=== PATIENT | female | born 1980 | race Caucasian/White ===

== ENCOUNTER 2016-06-16 23:58 | Emergency (ER) | payer BC ==
--- NOTE | 2016-06-17 01:29 | ED NURSING NOTES ---
Clinical Report - [facility] [address] [place] [address] 06/17/2016 0:02 Patient: ILENE NUNEZ TRIAGE Triage time 0008. Acuity: LEVEL 4. Chief Complaint: INJURY TO THE LEFT GREAT TOE WITH PARTIAL AMPUTATION. RANDALL COMA SCORE: Randall Coma Scale: 15- eyes open spontaneously (4); best verbal response- oriented x 4 (5); best motor response- obeys commands (6). --00:15 Odessa Chawla R.N. 00:08 06/17/16. BP: 140/80. HR: 100. RR: 18 (unlabored). O2 saturation: 96% on room air. Temp: 98.1 F (oral). Pain level now: 08/14. --00:15 Odessa Chawla R.N. Weight: 56.6 kg stated. Height/Length: 61 inches Per Patient. BMI: 23.6. --00:08 Odessa Chawla R.N. Medications None. --00:14 Odessa Chawla R.N. Allergies Cephalexin. --00:14 Odessa Chawla R.N. Medication/allergy information source: the patient. --00:15 Odessa Chawla R.N. History Arrived by private vehicle. Historian: patient. Accompanied by friend. Primary physician ([facility]). ( pt c/o left great toenail almost completely torn off while she was walking barefoot outside her house. pt states it's been bleeding for over an hour. pt denies being on blood thinners.). This occurred just prior to arrival. Occurred at home. Mechanism of injury: (toenail torn off). Treatment MEDICAL IMAGING DIRECTOR: (bandaged). PAST MEDICAL HX: Tetanus status: up-to-date. Last normal menstrual period- June 01. SOCIAL HX: Never smoker. Occasional alcohol use. No drug use. ABUSE ASSESSMENT: No report of abuse. FALL RISK ASSESSMENT: Fall risk assessment completed. No fall risk identified. NUTRITIONAL RISK ASSESSMENT: The nutritional risk assessment revealed no deficiencies. FUNCTIONAL ASSESSMENT: Functional assessment: no impairments noted. LEARNING NEEDS ASSESSMENT: The learning needs assessment revealed no barriers. SKIN INTEGRITY ASSESSMENT: Skin integrity risk assessment completed. No skin integrity risk identified. --00:15 Odessa Chawla R.N. PROBLEMS: no known problems. ADDITIONAL SURGERIES: Left foot surgery. --00:14 Odessa Chawla R.N. Interventions ID band on patient. To treatment room. --00:15 Odessa Chawla R.N. PHYSICAL ASSESSMENT To room via wheelchair. GENERAL / NEURO / PSYCH: Oriented X 4. Appears in pain. EXTREMITIES: Capillary refill is less than 2 seconds in the extremities. Extremity pulses are within normal limits. Extremities exhibit normal ROM. Neuro-vascular status intact to the extremity. Normal gait. Left big toe: of the nail bed. SKIN: Skin intact. Skin is warm and dry. --00:16 Odessa Chawla R.N. <<STRICKEN ENTRY-- late entry - minimal bleeding at this time. --01:03 Odessa Chawla R.N. --END STRIKE>> Correction --01:03 Odessa Chawla R.N. late entry - slow bleed continues to left great toe. --01:03 Odessa Chawla R.N. NURSING PROGRESS NOTES Two patient identifiers checked. Call light placed in reach. Side rails up x 1. Bed placed in lowest position. Brakes of bed on. Patient ready for evaluation. --00:15 Odessa Chawla R.N. 00:38 06/17/2016 Percocet (Oxycodone-Acetaminophen) PO 5/325 mg Tablets 1 tab given. Allergies verified, confirmed 5 rights and sedative warning given to the patient. --00:38 Odessa Chawla R.N. 00:38 06/17/2016 Zofran ODT (Ondansetron) PO 4 mg given. Allergies verified and confirmed 5 rights. --00:38 Odessa Chawla R.N. 01:20 06/17/16. BP: 86/58. HR: 75. RR: 18 (unlabored). O2 saturation: 100% on room air. Pain level now: 07/15. --01:27 Odessa Chawla R.N. pt given ice water to drink. notified of pt's BP. --01:27 Odessa Chawla R.N. 01:20 06/17/2016 Percocet PO Response: pain is improving. --01:28 Odessa Chawla R.N. ( 0110: Soak the wound with Hibiclens and water). --01:39 Aurora Lucas ( 0120: cleaned and irrigated the wound with Sodium Choride). --01:43 Aurora Lucas ( 0125: Applied bacitracin and dress the wound). --01:44 Aurora Lucas. DISPOSITION / DISCHARGE Departure time: 0151. Condition at departure: improved. No learning barriers present. Discharge instructions provided and reviewed with the patient. Reviewed medication(s). Prescription(s) given to the patient (Percocet). Patient verbalized understanding. Written instructions provided in Romanian. The patient was discharged by the physician. She was discharged home and accompanied by product manager. She left the Emergency Department ambulatory and via private vehicle. Chipper Feeder driving. Medication list reviewed and validated with the patient. --01:55 Odessa Chawla R.N. 01:51 06/17/16. BP: 99/70. HR: 81. RR: 18. O2 saturation: 97% on room air. Temp: deferred. Pain level now: 06/14. --01:55 Odessa Chawla R.N. Locked/Released at 06/17/2016 1:55 by Odessa Chawla R.N.
--- NOTE | 2016-06-17 01:29 | ED NURSING NOTES ---
Clinical Report - [facility] [address] [place] [address] 06/17/2016 0:02 Patient: ILENE NUNEZ TRIAGE Triage time 0008. Acuity: LEVEL 4. Chief Complaint: INJURY TO THE LEFT GREAT TOE WITH PARTIAL AMPUTATION. RANDALL COMA SCORE: Randall Coma Scale: 15- eyes open spontaneously (4); best verbal response- oriented x 4 (5); best motor response- obeys commands (6). --00:15 Odessa Chawla R.N. 00:08 06/17/16. BP: 140/80. HR: 100. RR: 18 (unlabored). O2 saturation: 96% on room air. Temp: 98.1 F (oral). Pain level now: 08/14. --00:15 Odessa Chawla R.N. Weight: 56.6 kg stated. Height/Length: 61 inches Per Patient. BMI: 23.6. --00:08 Odessa Chawla R.N. Medications None. --00:14 Odessa Chawla R.N. Allergies Cephalexin. --00:14 Odessa Chawla R.N. Medication/allergy information source: the patient. --00:15 Odessa Chawla R.N. History Arrived by private vehicle. Historian: patient. Accompanied by friend. Primary physician ([facility]). ( pt c/o left great toenail almost completely torn off while she was walking barefoot outside her house. pt states it's been bleeding for over an hour. pt denies being on blood thinners.). This occurred just prior to arrival. Occurred at home. Mechanism of injury: (toenail torn off). Treatment EQUIPMENT TESTER: (bandaged). PAST MEDICAL HX: Tetanus status: up-to-date. Last normal menstrual period- June 01. SOCIAL HX: Never smoker. Occasional alcohol use. No drug use. ABUSE ASSESSMENT: No report of abuse. FALL RISK ASSESSMENT: Fall risk assessment completed. No fall risk identified. NUTRITIONAL RISK ASSESSMENT: The nutritional risk assessment revealed no deficiencies. FUNCTIONAL ASSESSMENT: Functional assessment: no impairments noted. LEARNING NEEDS ASSESSMENT: The learning needs assessment revealed no barriers. SKIN INTEGRITY ASSESSMENT: Skin integrity risk assessment completed. No skin integrity risk identified. --00:15 Odessa Chawla R.N. PROBLEMS: no known problems. ADDITIONAL SURGERIES: Left foot surgery. --00:14 Odessa Chawla R.N. Interventions ID band on patient. To treatment room. --00:15 Odessa Chawla R.N. PHYSICAL ASSESSMENT To room via wheelchair. GENERAL / NEURO / PSYCH: Oriented X 4. Appears in pain. EXTREMITIES: Capillary refill is less than 2 seconds in the extremities. Extremity pulses are within normal limits. Extremities exhibit normal ROM. Neuro-vascular status intact to the extremity. Normal gait. Left big toe: of the nail bed. SKIN: Skin intact. Skin is warm and dry. --00:16 Odessa Chawla R.N. <<STRICKEN ENTRY-- late entry - minimal bleeding at this time. --01:03 Odessa Chawla R.N. --END STRIKE>> Correction --01:03 Odessa Chawla R.N. late entry - slow bleed continues to left great toe. --01:03 Odessa Chawla R.N. NURSING PROGRESS NOTES Two patient identifiers checked. Call light placed in reach. Side rails up x 1. Bed placed in lowest position. Brakes of bed on. Patient ready for evaluation. --00:15 Odessa Chawla R.N. 00:38 06/17/2016 Percocet (Oxycodone-Acetaminophen) PO 5/325 mg Tablets 1 tab given. Allergies verified, confirmed 5 rights and sedative warning given to the patient. --00:38 Odessa Chawla R.N. 00:38 06/17/2016 Zofran ODT (Ondansetron) PO 4 mg given. Allergies verified and confirmed 5 rights. --00:38 Odessa Chawla R.N. 01:20 06/17/16. BP: 86/58. HR: 75. RR: 18 (unlabored). O2 saturation: 100% on room air. Pain level now: 07/15. --01:27 Odessa Chawla R.N. pt given ice water to drink. notified of pt's BP. --01:27 Odessa Chawla R.N. 01:20 06/17/2016 Percocet PO Response: pain is improving. --01:28 Odessa Chawla R.N. ( 0110: Soak the wound with Hibiclens and water). --01:39 Aurora Lucas ( 0120: cleaned and irrigated the wound with Sodium Choride). --01:43 Aurora Lucas ( 0125: Applied bacitracin and dress the wound). --01:44 Aurora Lucas. DISPOSITION / DISCHARGE Departure time: 0151. Condition at departure: improved. No learning barriers present. Discharge instructions provided and reviewed with the patient. Reviewed medication(s). Prescription(s) given to the patient (Percocet). Patient verbalized understanding. Written instructions provided in Ghanaian. The patient was discharged by the physician. She was discharged home and accompanied by food porter. She left the Emergency Department ambulatory and via private vehicle. Cyber Workforce Developer And Manager driving. Medication list reviewed and validated with the patient. --01:55 Odessa Chawla R.N. 01:51 06/17/16. BP: 99/70. HR: 81. RR: 18. O2 saturation: 97% on room air. Temp: deferred. Pain level now: 06/14. --01:55 Odessa Chawla R.N. Locked/Released at 06/17/2016 1:55 by Odessa Chawla R.N.
--- NOTE | 2016-06-17 01:29 | ED CLINICAL REPORT ---
Clinical Report - Physicians/Mid Levels [facility] [address] [place] [address] 06/17/2016 0:02 Patient: ILENE NUNEZ Time Seen: 0008. Arrived- By private vehicle. Historian- patient. HISTORY OF PRESENT ILLNESS Chief Complaint: Injury to the left great toe. The injury happened today. Occurred on a street. ( walking outside without footwear.). Patient is experiencing moderate pain. Patient denies injury to the head or neck. No other injury. (states the toe nail ripped off. unable to control bleeding.). REVIEW OF SYSTEMS No swelling or weakness. All systems otherwise negative, except as recorded above. PAST HISTORY See nurses notes. Tetanus immunization status is up-to-date. Problems: no known problems. Medications: None. Allergies: Cephalexin. SOCIAL HISTORY Never smoker. Occasional alcohol use. No drug use. Is a local resident. ADDITIONAL NOTES The nursing notes have been reviewed. PHYSICAL EXAM Vital Signs: 06/17/2016 00:08 BP: 140/80. HR: 100. RR: 18. O2 saturation: 96%. Temp: 98.1 F. Pain level now: 7/10. Oxygen saturation normal. Appearance: Alert. Oriented X3. No acute distress. Head: Head atraumatic. Eyes: Pupils equal, round and reactive to light. Eyes normal inspection. ENT: Ears normal. Nose normal. Pharynx normal. Neck: Normal inspection. Neck supple. C-spine non-tender. CVS: Normal heart rate and rhythm. Heart sounds normal. Pulses normal. Respiratory: No respiratory distress. Breath sounds normal. Chest nontender. Abdomen: No visible injury. Soft and nontender. Bowel sounds normal. No mass. Skin: Skin intact. Skin warm and dry. Extremities: (toe nail on left foot completely avulsed. no active bleeding. neurovasc intact. no julia abnormalities. no fb. cap refill < 3 sec in all toes. no other signs of trauma.). No extremity tenderness in other areas. No foot injury. No ankle injury. Foot and ankle exam otherwise negative. Extremities otherwise negative. Neuro, Vascular and Tendons: Vascular status intact. Sensation intact. Motor intact. Tendon function intact. PROGRESS AND PROCEDURES Course of Care: The patient is a pleasant 36-year-old female presenting for evaluation of left toe injury. On examination, no signs of osseous abnormalities. Patient with avulsed toenail. Bleeding has been controlled on evaluation. We'll leave reviewed and dress wound iin the emergency department. Patient was reevaluated once the wound was irrigated and cleaned. In no acute osseous other maladies noted. No signs of fracture. Pain controlled as well as bleeding. Discussed the patient wound infection risk and return precautions. Furthermore discussed with patient her diagnosis, home care, follow-up. All questions have been answered. The patient expressed understanding of these instructions and was agreeable to them. Disposition: Discharged. Condition: good. CLINICAL IMPRESSION 06/17/2016 01:20 BP: 86/58. HR: 75. RR: 18. O2 saturation: 100%. Pain level now: 610. 06/17/2016 00:08 BP: 140/80. HR: 100. RR: 18. O2 saturation: 96%. Temp: 98.1 F. Pain level now: 7/10. Blood pressure normal. Oxygen saturation normal. Complete nail avulsion to left great toe. INSTRUCTIONS Warnings: SEDATIVE MEDICATION: You were given sedative medication during your visit. Do not drive or operate dangerous machinery. CONTROLLED SUBSTANCE WARNINGS. GENERAL WARNINGS: Return or contact your physician immediately if your condition worsens or changes unexpectedly, if not improving as expected, or if other problems arise. Specifically return if pain, vomiting, bleeding, breathing difficulty or fever. Your Current Medications: CONTINUE TAKING THE FOLLOWING MEDICATIONS: None*. Prescription Medications: Percocet 5 mg/325 mg: take 1 tablet orally every 6 hours as needed for pain. Dispense twelve (12). No refill. Substitution is permissible. Follow-up: Return to the emergency department as needed. Follow up with your doctor in three. Reason for referral: recheck today's concerns. Screening today revealed the patient's blood pressure to be in the normal range. The patient should follow up with a primary care provider for blood pressure management. Understanding of the discharge instructions verbalized by patient. (Electronically signed by Randall Dale Dr. 06/19/2016 4:47)
--- NOTE | 2016-06-17 01:29 | ED ORDER SUMMARY ---
..... Patient: ILENE NUNEZ OrderSheet [facility] VisitID: [id number] [address] [place] [address] 36y, F Registration Date/Time: 06/17/2016 ORDER SHEET Weight: 56.6 kg (stated) Allergies: Cephalexin GENERAL ORDERS: Wound Irrigation (00:06/17/2016 Collin Stokes) (Ack 0:16 JQuivey R.N.) (1:28 HKone R.N.) Dress Wounds (bacitracin) (00:06/17/2016 Collin Stokes) (Ack 0:16 JQuivey R.N.) (1:28 HKone R.N.) MEDICATION ORDERS: Percocet PO 5/325 mg (HIGH ALERT MEDICATION, NOW) (00:06/17/2016 Collin Stokes) (Ack 0:32 HKone R.N.) (0:38 HKone R.N.) Zofran ODT PO 4 mg (NOW) (00:06/17/2016 Collin Stokes) (Ack 0:33 HKone R.N.) (0:38 HKone R.N.) IV FLUIDS: ORDER SHEET NOTES: [Electronically signed by Odessa Chawla R.N. (01:55 06/17/2016)] [Electronically signed by Randall Dale Dr. (04:47 06/19/2016)] [Electronically locked/signed by Odessa Chawla R.N. (01:55 06/17/2016)]
--- NOTE | 2016-06-17 01:29 | ED ORDER SUMMARY ---
..... Patient: ILENE NUNEZ OrderSheet [facility] VisitID: [id number] [address] [place] [address] 36y, F Registration Date/Time: 06/17/2016 ORDER SHEET Weight: 56.6 kg (stated) Allergies: Cephalexin GENERAL ORDERS: Wound Irrigation (00:06/17/2016 Collin Stokes) (Ack 0:16 JQuivey R.N.) (1:28 HKone R.N.) Dress Wounds (bacitracin) (00:06/17/2016 Collin Stokes) (Ack 0:16 JQuivey R.N.) (1:28 HKone R.N.) MEDICATION ORDERS: Percocet PO 5/325 mg (HIGH ALERT MEDICATION, NOW) (00:06/17/2016 Collin Stokes) (Ack 0:32 HKone R.N.) (0:38 HKone R.N.) Zofran ODT PO 4 mg (NOW) (00:06/17/2016 Collin Stokes) (Ack 0:33 HKone R.N.) (0:38 HKone R.N.) IV FLUIDS: ORDER SHEET NOTES: [Electronically signed by Odessa Chawla R.N. (01:55 06/17/2016)] [Electronically signed by Randall Dale Dr. (04:47 06/19/2016)] [Electronically locked/signed by Odessa Chawla R.N. (01:55 06/17/2016)]
--- NOTE | 2016-06-19 04:47 | ED MAR SUMMARY ---
..... Medication Administration Record [facility] [address] [place] [address] Patient: ILENE NUNEZ Visit ID: [id number] 36y, F Weight: 56.6 kg Height/Length: 61 in BMI: 23.6 ALLERGIES: Cephalexin Given 00:38 06/17/2016 Odessa Chawla, RJosephN. Medication Administered: PERCOCET [PO] (OXYCODONE-ACETAMINOPHEN), Dose: 1 tab 5/325 mg Tablets PO. Medication Ordered: Percocet PO 5/325 mg (HIGH ALERT MEDICATION, NOW). Given 00:06/17/2016 Odessa Chawla, R.N. Medication Administered: ZOFRAN ODT [PO] (ONDANSETRON), Dose: 4 mg PO. Medication Ordered: Zofran ODT PO 4 mg (NOW).
--- NOTE | 2016-06-19 04:47 | ED MED RECONCILIATION SUMMARY ---
Patient: ILENE NUNEZ Medication Reconciliation Report [facility] VisitID: [id number] [address] [place] [address] 36y, F Registration Date/Time: 06/17/2016 Weight: 56.6 kg Height/Length: 61 in. BMI: 23.6 ALLERGIES: Cephalexin The patient's Home Medications are listed below: NONE. The source(s) of the original Home Medication information: patient The following Medications were given to the patient in the Emergency Department: Percocet [PO] PO 1 tab, administered: 06/17/2016 12:38:00 AM Zofran ODT [PO] PO 4 mg, administered: 06/17/2016 12:38:00 AM The following Medications were prescribed to the patient: Percocet 5 mg/325 mg: take 1 tablet orally every 6 hours as needed for pain. Dispense twelve (12). No refill. Substitution is permissible. -- Randall Dale Dr.
--- NOTE | 2016-06-19 04:47 | ED MAR SUMMARY ---
..... Medication Administration Record [facility] [address] [place] [address] Patient: ILENE NUNEZ Visit ID: [id number] 36y, F Weight: 56.6 kg Height/Length: 61 in BMI: 23.6 ALLERGIES: Cephalexin Given 00:38 06/17/2016 Odessa Chawla, RJosephN. Medication Administered: PERCOCET [PO] (OXYCODONE-ACETAMINOPHEN), Dose: 1 tab 5/325 mg Tablets PO. Medication Ordered: Percocet PO 5/325 mg (HIGH ALERT MEDICATION, NOW). Given 00:06/17/2016 Odessa Chawla, R.N. Medication Administered: ZOFRAN ODT [PO] (ONDANSETRON), Dose: 4 mg PO. Medication Ordered: Zofran ODT PO 4 mg (NOW).
--- NOTE | 2016-06-19 04:47 | ED DISCHARGE INSTRUCTIONS ---
Patient: ILENE NUNEZ General Instructions [facility] VisitID: [id number] [address] [place] [address] 36y, F Registration Date/Time: 06/17/2016 06/17/2016 01:20 BP: 86/58. HR: 75. RR: 18. O2 saturation: 100%. Pain level now: 07/15. 06/17/2016 00:08 BP: 140/80. HR: 100. RR: 18. O2 saturation: 96%. Temp: 98.1 F. Pain level now: 08/14. Blood pressure normal. Oxygen saturation normal. Complete nail avulsion to left great toe. INSTRUCTIONS Warnings: SEDATIVE MEDICATION: You were given sedative medication during your visit. Do not drive or operate dangerous machinery. CONTROLLED SUBSTANCE WARNINGS. GENERAL WARNINGS: Return or contact your physician immediately if your condition worsens or changes unexpectedly, if not improving as expected, or if other problems arise. Specifically return if pain, vomiting, bleeding, breathing difficulty or fever. Your Current Medications: CONTINUE TAKING THE FOLLOWING MEDICATIONS: None*. Prescription Medications: Percocet 5 mg/325 mg: take 1 tablet orally every 6 hours as needed for pain. Dispense twelve (12). No refill. Substitution is permissible. Follow-up: Return to the emergency department as needed. Follow up with your doctor in three. Reason for referral: recheck today's concerns. Screening today revealed the patient's blood pressure to be in the normal range. The patient should follow up with a primary care provider for blood pressure management. Understanding of the discharge instructions verbalized by patient. ADDITIONAL INFORMATION Nail Injury (Complete Finger/Toe Nail Plate Avulsion) Some injuries to a finger or toe can cause loss of the nail. Sometimes there is a cutin the nail bed or a fracture of the bone under the nail. In almost all cases, the nail will grow back from under the cuticle. This takes a few weeks to start and is complete in about 46 months for a fingernail and 12 months for a toenail. If the nail bed was damaged, the nail may grow back with a rough or irregular shape. Sometimes the nail may not regrow at all. Home care The following guidelines will help you care for your wound at home: Keep the injured part raised to reduce pain and swelling. This is very important during the first 48 hours. Make an ice pack (ice cubes in a plastic bag, wrapped in a towel) and apply for 20 minutes every two hours during the first day, then 34 times a day to reduce swelling and pain until the swelling goes down. You may use acetaminophen or ibuprofen to control pain, unless another pain medicine was prescribed.If you have chronic liver or kidney disease or ever had a stomach ulcer or GI bleeding, talk with your doctor before using these medicines. The nail bed (tissue under the nail) is moist, soft and sensitive. This needs to be protected from injury for the first 710 days until it dries out and becomes hard. Keep it covered with a dressing or an adhesive bandage until that time. When a dressing is placed on an exposed nail bed, it may stick and be hard to remove if left in place more than 24 hours. Therefore, unless you were told otherwise, change dressings every 24 hours. If necessary, soak the dressing off while holding your finger or toe under warm, running water. Apply a layer of antibiotic ointment before putting on the new dressing or bandage. This will help keep it from sticking. If an X-ray was taken and a fracture was found, it will take about four weeks for this to heal. The injured part should be protected with a splint or tape while it is healing. If you were prescribed antibiotics to prevent infection, take them as directed until they are all gone. Follow-up care Follow up with your doctor or this facility as directed. Note:If X-rays were taken, they will be reviewed by a radiologist. You will be notified of any new findings that may affect your care. When to seek medical care Get prompt medical attention if any of the following occur: Pain or swelling increases Redness around the nail Pus (creamy white or yellow fluid) draining from the nail Fever of 100.4F (38C) or higher, or as directed by your health care provider Oxycodone Hydrochloride, Acetaminophen Oral tablet What is this medicine? ACETAMINOPHEN; OXYCODONE (a set a CAROLIN anahi fen; ox i KOE done) is a pain reliever. It is used to treat mild to moderate pain. How should I use this medicine? Take this medicine by mouth with a full glass of water. Follow the directions on the prescription label. Take your medicine at regular intervals. Do not take your medicine more often than directed. Talk to your paving machine operator regarding the use of this medicine in children. Special care may be needed. Patients over 65 years old may have a stronger reaction and need a smaller dose. What side effects may I notice from receiving this medicine? Side effects that you should report to your doctor or health behavioral health care manager as soon as possible: allergic reactions like skin rash, itching or hives, swelling of the face, lips, or tongue breathing difficulties, wheezing confusion light headedness or fainting spells severe stomach pain yellowing of the skin or the whites of the eyes Side effects that usually do not require medical attention (report to your doctor or health behavioral health care manager if they continue or are bothersome): dizziness drowsiness nausea vomiting What may interact with this medicine? alcohol antihistamines barbiturates like amobarbital, butalbital, butabarbital, methohexital, pentobarbital, phenobarbital, thiopental, and secobarbital benztropine drugs for bladder problems like solifenacin, trospium, oxybutynin, tolterodine, hyoscyamine, and methscopolamine drugs for breathing problems like ipratropium and tiotropium drugs for certain stomach or intestine problems like propantheline, homatropine methylbromide, glycopyrrolate, atropine, belladonna, and dicyclomine general anesthetics like etomidate, ketamine, nitrous oxide, propofol, desflurane, enflurane, halothane, isoflurane, and sevoflurane medicines for depression, anxiety, or psychotic disturbances medicines for sleep muscle relaxants naltrexone narcotic medicines (opiates) for pain phenothiazines like perphenazine, thioridazine, chlorpromazine, mesoridazine, fluphenazine, prochlorperazine, promazine, and trifluoperazine scopolamine tramadol trihexyphenidyl What if I miss a dose? If you miss a dose, take it as soon as you can. If it is almost time for your next dose, take only that dose. Do not take double or extra doses. Where should I keep my medicine? Keep out of the reach of children. This medicine can be abused. Keep your medicine in a safe place to protect it from theft. Do not share this medicine with anyone. Selling or giving away this medicine is dangerous and against the law. Store at room temperature between 20 and 25 degrees C (68 and 77 degrees F). Keep container tightly closed. Protect from light. This medicine may cause accidental overdose and if it is taken by other adults, children, or pets. Flush any unused medicine down the toilet to reduce the chance of harm. Do not use the medicine after the expiration date. What should I tell my health care provider before I take this medicine? They need to know if you have any of these conditions: brain tumor Crohn's disease, inflammatory bowel disease, or ulcerative colitis drink more than 3 alcohol containing drinks per day drug abuse or addiction head injury heart or circulation problems kidney disease or problems going to the bathroom liver disease lung disease, asthma, or breathing problems an unusual or allergic reaction to acetaminophen, oxycodone, other opioid analgesics, other medicines, foods, dyes, or preservatives or trying to get breast-feeding What should I watch for while using this medicine? Tell your doctor or health behavioral health care manager if your pain does not go away, if it gets worse, or if you have new or a different type of pain. You may develop tolerance to the medicine. Tolerance means that you will need a higher dose of the medication for pain relief. Tolerance is normal and is expected if you take this medicine for a long time. Do not suddenly stop taking your medicine because you may develop a severe reaction. Your body becomes used to the medicine. This does NOT mean you are addicted. Addiction is a behavior related to getting and using a drug for a non-medical reason. If you have pain, you have a medical reason to take pain medicine. Your doctor will tell you how much medicine to take. If your doctor wants you to stop the medicine, the dose will be slowly lowered over time to avoid any side effects. You may get drowsy or dizzy. Do not drive, use machinery, or do anything that needs mental alertness until you know how this medicine affects you. Do not stand or sit up quickly, especially if you are an older patient. This reduces the risk of dizzy or fainting spells. Alcohol may interfere with the effect of this medicine. Avoid alcoholic drinks. There are different types of narcotic medicines (opiates) for pain. If you take more than one type at the same time, you may have more side effects. Give your health care provider a list of all medicines you use. Your doctor will tell you how much medicine to take. Do not take more medicine than directed. Call emergency for help if you have problems breathing. The medicine will cause constipation. Try to have a bowel movement at least every 2 to 3 days. If you do not have a bowel movement for 3 days, call your doctor or health behavioral health care manager. Do not take Tylenol (acetaminophen) or medicines that have acetaminophen with this medicine. Too much acetaminophen can be very dangerous. Many nonprescription medicines contain acetaminophen. Always read the labels carefully to avoid taking more acetaminophen. You have been given the following additional information: Nail Avulsion, Complete Oxycodone Hydrochloride, Acetaminophen Oral tablet (Electronically signed by Randall Dale Dr. 06/19/2016 4:47)
--- NOTE | 2016-06-19 04:47 | ED MED RECONCILIATION SUMMARY ---
Patient: ILENE NUNEZ Medication Reconciliation Report [facility] VisitID: [id number] [address] [place] [address] 36y, F Registration Date/Time: 06/17/2016 Weight: 56.6 kg Height/Length: 61 in. BMI: 23.6 ALLERGIES: Cephalexin The patient's Home Medications are listed below: NONE. The source(s) of the original Home Medication information: patient The following Medications were given to the patient in the Emergency Department: Percocet [PO] PO 1 tab, administered: 06/17/2016 12:38:00 AM Zofran ODT [PO] PO 4 mg, administered: 06/17/2016 12:38:00 AM The following Medications were prescribed to the patient: Percocet 5 mg/325 mg: take 1 tablet orally every 6 hours as needed for pain. Dispense twelve (12). No refill. Substitution is permissible. -- Randall Dale Dr.
== END 2016-06-17 01:51 | disposition home or self-care (01) ==
LOC: ED SRH 23:58
DX: S91.202A Unspecified open wound of left great toe with damage to nail, initial encounter (principal); X58.XXXA Exposure to other specified factors, initial encounter; Y93.9 Activity, unspecified; Y92.410 Unspecified street and highway as the place of occurrence of the external cause; Y99.9 Unspecified external cause status; Z88.1 Allergy status to other antibiotic agents